=== PATIENT | female | born 1985 | race African-American/Black ===

== ENCOUNTER 2017-11-21 22:20 | Inpatient (IN) | payer OTHER ==
[2017-11-21] MEDS: DEXTROSE 5%-LACTATED RINGERS 1,000 ML IV SCH (23:00)
[2017-11-21] MEDS ORDERED: LABETALOL HCL 200 MG TABLET (FP) ONE (23:09)
[2017-11-21] MEDS ORDERED: BETAMET ACET/BETAMET NA PH 30 MG/5 ML VIAL IM ONE (23:10)
[2017-11-21] MEDS ORDERED: LABETALOL HCL 200 MG TABLET (FP) PO ONE (23:10)
[2017-11-21] MEDS ORDERED: BETAMET ACET/BETAMET NA PH 30 MG/5 ML VIAL ONE (23:25)
[2017-11-21 23:35] LABS: BASO % 0.7 % (0-2.0); EOS % 0.7 % (0-4.5); HEMATOCRIT 38.7 % (32.4-45.2); HEMOGLOBIN 12.7 GM/dL (10.7-15.3); LYMPH % 19.6 % (8-40); MCH 28.1 pg (25.7-33.7); MCHC 32.7 g/dl (32.0-36.0); MEAN CELL VOLUME 85.9 fl (80-96); MEAN PLT VOLUME 10.8 fl (7.5-11.1); MONO % 9.4 % (3.8-10.2); NEUT % 69.6 % (42.8-82.8); PLATELET COUNT 136 K/MM3 (134-434); RBC 4.51 M/mm3 (3.60-5.2); RDW 13.9 % (11.6-15.6); RETICULOCYTES 1.96 % (0.5-1.5); WHITE BLOOD COUNT 9.5 K/mm3 (4.0-10.0)
[2017-11-21 23:38] LABS: URINE APPEARANCE CLEAR; URINE BILIRUBIN NEGATIVE (<2.0 mg/dL); URINE BLOOD NEGATIVE (NEGATIVE); URINE COLOR YELLOW; URINE GLUCOSE (UA) NEGATIVE (NEGATIVE); URINE KETONE NEGATIVE (NEGATIVE); URINE LEUK ESTERASE NEGATIVE (NEGATIVE); URINE NITRITE NEGATIVE (NEGATIVE); URINE UROBILINOGEN NEGATIVE mg/dL (0.2-1.0)
[2017-11-21 23:39] LABS: URINE PROTEIN 3+ (NEGATIVE)
[2017-11-21 23:41] LABS: EPI CELLS RARE /HPF (FEW); URINE BACTERIA RARE /hpf (NONE SEEN); URINE HYALINE CAST 29 /lpf; URINE MUCUS RARE
[2017-11-21 23:56] LABS: INR 0.86 (0.82-1.09); PROTHROMBIN TIME (PATIENT) 9.7 SEC (9.7-13.0)
[2017-11-21 23:59] LABS: ACTIVATED PTT 35.2 SECONDS (26.9-34.4); ANION GAP 9 (8-16); BLOOD UREA NITROGEN 9 mg/dL (7-18); CALCIUM 8.8 mg/dL (8.5-10.1); CHLORIDE 108 mmol/L (98-107); CO2 22 mmol/L (21-32); CREATININE 0.8 mg/dL (0.55-1.02); GAMMA GLUTAMYL TRANSPEPTIDASE 23 U/L (5-85); GLUCOSE,RANDOM 108 mg/dL (74-106); SGOT/AST 26 U/L (15-37); SGPT/ALT 33 U/L (12-78); SODIUM 139 mmol/L (136-145); URIC ACID 4.4 mg/dL (2.6-7.2)
[2017-11-22 01:09] VITALS: BMI 28.2
[2017-11-22] MEDS ORDERED: LABETALOL HCL 200 MG TABLET (FP) ONE (06:34)
[2017-11-22] MEDS: LABETALOL HCL 200 MG TABLET (FP) PO SCH ×2 (06:43→14:53)
[2017-11-22] MEDS: DEXTROSE 5%-LACTATED RINGERS 1,000 ML IV SCH (06:43)
[2017-11-22 08:55] LABS: RETICULOCYTES 2.05 % (0.5-1.5)
[2017-11-22] MEDS ORDERED: PRENATAL VITAMINS W/ FOLIC ACID TABLET (FP) PO ONE (10:30)
[2017-11-22] MEDS ORDERED: BETAMET ACET/BETAMET NA PH 30 MG/5 ML VIAL IM ONE (11:30)
[2017-11-22 13:20] VITALS: BP 152/85; PULSE 77; TEMP 98.7
--- NOTE | 2017-11-22 14:30 | HP ---
Past Medical History - Primary Care Physician PCP:: Beena Jesus - Admission Chief Complaint: Gestational Hypertension. IUP at 33week by usg History Source: Patient - Past Medical History ...: 2 ...Para: 1 ...Term: 1 ...: 0 ...Spon : 0 ...Induced : 0 ...Multiple Gestation: 0 ...LMP: 04/06/17 ... Weeks Gestation by Dates: 32.5 ...EDC by Dates: 01/11/18 ...EDC by Sono: 01/10/18 - Past Surgical History Past Surgical History: Yes: None Hx Myomectomy: No Hx Transabdominal Cerclage: No - Smoking History Smoking history: Never smoked Have you smoked in the past 12 months: No - Alcohol/Substance Use Hx Alcohol Use: No History of Substance Use: reports: None - Social History History of Recent Travel: No Home Medications - Allergies Allergies/Adverse Reactions: Allergies Allergy/AdvReac Type Severity Reaction Status Date / Time No Known Allergies Allergy Verified 11/21/17 23:53 - Home Medications Home Medications: Ambulatory Orders Vitamins (Sjr) - 1 tab PO DAILY 11/21/17 Physical Exam - Maternity Vital Signs: Vital Signs Temperature 98.7 F 11/22/17 13:00 Pulse Rate 77 11/22/17 13:00 Respiratory Rate 18 11/22/17 13:00 Blood Pressure 152/85 11/22/17 13:00 O2 Sat by Pulse Oximetry (%) Constitutional: Yes: Well Nourished, No Distress, Calm Eyes: Yes: WNL, Conjunctiva Clear, EOM Intact HENT: Yes: WNL, Atraumatic, Normocephalic Neck: Yes: WNL, Supple, Trachea Midline Cardiovascular: Yes: WNL, Regular Rate and Rhythm Breast(s): Yes: WNL - Abdominal Exam/OB Number of Fetuses: Single Category: I - Vaginal Exam/OB Vaginal Bleediing: No Speculum Exam: No Amniotic Membrane Status: Intact Presentation: Vertex/Position - Physical Exam Musculoskeletal: Yes: WNL, Muscle Weakness - Labs Lab Results: CBC, BMP 11/22/17 08:40 11/21/17 23:20 Hemorrhage Risk Assessment - Risk Factors Risk Score: 0 Risk Level: Low Risk Problem List - Problems (1) Gestational hypertension affecting second Code(s): O13.9 - GESTATIONAL HTN W/O SIGNIFICANT PROTEINURIA, UNSP TRIMESTER (2) 33 weeks gestation of Code(s): Z3A.33 - 33 WEEKS GESTATION OF Assessment/Plan IUP at 33 week gestational Hypertension Plan Labetalol 200 TID bed rest at home unable to go to work 24 hour urine collection for protein steroids
[2017-11-23 11:45] LABS: URINE TOTAL VOLUME 1650 mL
[2017-11-23 12:00] LABS: URINE PROTEIN 479 mg/dl
[2017-11-23 12:39] LABS: CREATININE 0.9 mg/dL (0.55-1.02)
[2017-11-23 12:40] LABS: URINE CREATININE 77.1 mg/dL (20-320)
== END 2017-11-22 15:10 | disposition home or self-care (01) | DRG 782 ==
LOC: JDEL 22:20 → JERBED 23:10 → JLDR 23:53 → J3W 11-22 12:48
PROVIDERS: ADMIT Obstetrics & Gynecology; ATTEND Obstetrics & Gynecology
DX: O13.3 Gestational [pregnancy-induced] hypertension without significant proteinuria, third trimester (principal); Z3A.33 33 weeks gestation of pregnancy
CPT/HCPCS: 36415; 80048; 81003; 81015; 82575; 82977; 83010; 84156; 84450; 84460; 84550; 85025; 85032; 85044; 85610; 85730; 86593; 86850; 86870; 86900; 86901; 86902; 96372